=== PATIENT | female | born 1960 | race Caucasian/White ===

== ENCOUNTER 2018-05-15 05:56 | Day surgery (SDC) | payer BC ==
[2018-05-15] MEDS ORDERED: DIPRIVAN 200 MG/20 ML IV ONE (05:57)
[2018-05-15] MEDS ORDERED: Lactated Ringers 1,000 ML IV SCH (06:30)
[2018-05-15] MEDS ORDERED: CEFAZOLIN 2 GM-D5W BAG** 2 GM/50 ML ML IV ONE (06:51)
[2018-05-15] MEDS ORDERED: CEFAZOLIN 2 GM-D5W BAG** 2 GM/50 ML ML IV SCH (07:00)
[2018-05-15] MEDS ORDERED: Transderm Scop 1.5MG Patch TOP ONE (07:14)
[2018-05-15 09:35] VITALS: BP 148/72; PULSE 56; O2SAT 98
--- NOTE | 2018-05-15 10:32 | OP ---
SURGERY DATE/TIME: 05/15/2018 0803 PREOPERATIVE DIAGNOSIS: Screening exam. POSTOPERATIVE DIAGNOSIS: Normal colon. PROCEDURE: Colonoscopy. SURGEON: Dr. Moya. ANESTHESIA: MAC. Medications given by anesthesia department. HISTORY: The patient is a 57 year-old white female now presenting for her first screening colonoscopy. She was appraised of the risks of the procedure including the risk of perforation, phlebitis, untoward reaction to medication, bleeding and missed lesions. The patient verbalized her understanding and desired to have the procedure performed. DESCRIPTION OF PROCEDURE: The patient was given the medications by the anesthesia department. She had continuous pulse oximetry, ECG monitoring, intermittent blood pressure monitoring and tidal CO2 monitoring during the examination. She was placed in the left lateral decubitus position. A digital rectal examination was performed and revealed normal anal sphincter tone and no masses. The flexible Olympus pediatric colonoscope was used to intubate the rectum. A view of the colon was developed sequentially to the cecum. Upon insertion and withdrawal, including a retroflex view in the rectum, no mucosal lesions were encountered. The scope was removed from the patient who tolerated the procedure well and was sent back to OP recovery in good condition. The prep was noted to be fair to good.
== END 2018-05-15 09:30 | disposition home or self-care (01) ==
LOC: SDC 05:56
PROVIDERS: ATTEND Family Medicine
DX: K21.9 Gastro-esophageal reflux disease without esophagitis (principal); E03.9 Hypothyroidism, unspecified; I10 Essential (primary) hypertension; Z79.899 Other long term (current) drug therapy
CPT/HCPCS: 94250; J0690; J2704; A9270-GY